=== PATIENT | male | born 1970 | race Two or more races ===

== ENCOUNTER 2019-02-25 12:27 | Emergency (ER) | payer MEDICAID ==
[~2019-02-25] VITALS: Ht 172.7 cm; Wt 81.2 kg
--- NOTE | 2019-02-25 13:29 | NUR ---
Patient discharged to home in stable conditon. Written and verbal after care instructions given. Patient verbalizes understanding of instructions.
== END 2019-02-25 13:29 | disposition home or self-care (01) ==
LOC: ER 12:29
DX: R44.0 Auditory hallucinations (principal); Z76.0 Encounter for issue of repeat prescription
CPT/HCPCS: A4663